=== PATIENT | female | born 1985 | race Caucasian/White ===

== ENCOUNTER 2017-12-28 08:10 | Emergency (ER) | payer OTHER ==
--- NOTE | 2017-12-28 09:38 | EDPHY ---
General - History Smoking Status: Never smoked Time Seen by Provider: 12/28/17 09:25 Narrative: CHIEF COMPLAINT: Left leg pain HISTORY OF PRESENT ILLNESS: Patient presents by private vehicle with complaints of left leg pain with concern for DVT. She reports 2 days history of left calf pain and swelling. No redness. No warmth. No trauma or injury. She is concerned as the pain is increasing father is reportedly heterozygous for factor V Leiden. She does take oral contraceptive pills but does not know that they contain estrogen estradiol. She has no chest pain or shortness of breath at any time. She has no thigh or knee pain on the left lower extremity. No previous incidence of venous thrombolic event. No recent travel, trauma or surgery. Pain is mild-to- moderate. Worse with palpation and movement. Improves when elevated. No other associated complaints or modifying factors. ESTABLISHED ORTHOPEDIST: None REVIEW OF SYSTEMS: Ten systems reviewed and are negative unless otherwise noted in the HPI PAST MEDICAL HISTORY: Uncomplicated. Orthopedic injuries PAST SURGICAL HISTORY: orthopedic laparoscopy SOCIAL HISTORY: non smoker. originally from [place]. Lives independently FAMILY HISTORY: Positive for heterozygous factor V Leiden EXAMINATION: General Appearance: Alert, no distress Cardiovascular: DP and PT pulses symmetric at +2. good signs of perfusion to both LE Neurological: A&O, light sensory symmetric in lower extremities, strength symmetric in lower extremities and great toes Skin: Warm and dry, no rash. no erythema. no cellulitis or induration Extremities: mild swelling and tenderness of left calf. no tenderness of left popliteal space or left thigh. no pitting edema or palpable cords Psychiatric: Mood and affect normal DIFFERENTIAL DIAGNOSES: Including but not limited to DVT, superficial thrombophlebitis, sprain, strain, muscle cramp MDM: 9:25 a.m. Left lower extremity pain of several days isolated to the left calf. Patient does have family history of heterozygous factor 5 Leiden. She takes oral contraceptive pills but she does not know which 1. Prior to my examination, is DVT study was ordered and is positive for deep vein thrombosis of both left calf peroneal veins. There is no at or above the knee. I will discuss with primary care and hematology oncology for management of this. 10:00 a.m. Case discussed with bus cleaner Dr. Gonzales. He recommends laboratory studies that I have ordered today. He recommends Xarelto 15 mg once daily for 45 days therapy. He will follow up on her laboratory studies and manage the surveillance of her DVT in the outpatient setting. 10:15 a.m. Case discussed with Dr. Templeton, returning the page for Dr. Amezquita. She reports that she would be happy to follow up with patient in outpatient setting but does request that she also see Dr. Gonzales. 10:30 a.m. Patient re-evaluated. She has discovered that her oral contraceptive does include estradiol, thus we discussed immediate discontinuation and need for backup form of control. She verbalized her understanding of this and will discuss alternative methods with her new PCP. We also had a lengthy discussion regarding her DVT, altering her daily activities, medication adherence, avoidance of all NSAIDs and strict ED precautions for any chest pain or shortness of breath. She is also to return if her lower extremity symptoms worsen. She verbalized understanding of this. She received her first dose of Xarelto here, and she is discharged home in stable condition. She continues to deny any chest pain or shortness of breath prior to DC home. SUPERVISION: Patient was independently examined, but I discussed the case with my secondary supervising physician Dr. Lucas ([facility]) Discussion: The patient was evaluated and managed by the Physician Front Office Specialist. I discussed the patient's presentation and course with the midlevel provider with them and agree with the evaluation. My co-signature indicates that I have reviewed this chart and I agree with the findings and plan of care as documented. I am the secondary supervising physician. (Shobha Lucas) - Objective Vital Signs: Initial Vital Signs Temperature (C) 37 C 12/28/17 08:13 Heart Rate 88 12/28/17 08:13 Respiratory Rate 16 12/28/17 08:13 Blood Pressure 152/89 H 12/28/17 08:13 O2 Sat (%) 97 12/28/17 08:13 O2 Delivery Mode Room Air Allergies/Adverse Reactions: Sulfa (Sulfonamide Antibiotics) Allergy (Verified 12/28/17 08:12) Home Medications: Medication Instructions Recorded Amoxicillin 12/28/17 Rivaroxaban [Xarelto 15mg (*)] 15 mg PO DAILY #45 tab 12/28/17 Laboratory Results: 12/28/17 10:20 Protein C Activity 138 % % (70 - 150) Antithrombin III Activ 94 % % (80 - 130) Medications Given: Discontinued Medications Rivaroxaban (Xarelto) 15 mg PO EDNOW ONE Stop: 12/28/17 10:09 Last Admin: 12/28/17 10:37 Dose: 15 mg Departure - Departure Disposition: Home, Routine, Self-Care Clinical Impression: Deep venous thrombosis of left peroneal vein Condition: Good Instructions: Rivaroxaban (By mouth), Deep Vein Thrombosis (ED), Deep Vein Thrombosis Prevention (ED) Additional Instructions: 1. Xarelto 15 mg once daily for at least 40 days. First dose was given in the emergency department. Do not take this with any ibuprofen, Aleve, aspirin or other anti-inflammatories. 2. ED precautions as discussed and provided on your documentation 3. Return to emergency department immediately for any chest pain or shortness of breath of any kind 4. Contact the on-call bus cleaner as provided. He will follow up on the laboratory studies that were ordered here. 5. I provided the on-call patient primary care physician as well for you to establish with. Referrals: Erin Templeton MD [Medical Doctor] - As per Instructions Stuart Lopes MD [Medical Doctor] - As per Instructions Prescriptions: Rivaroxaban [Xarelto 15mg (*)] 15 mg PO DAILY #45 tab
[2017-12-28] MEDS ORDERED: RIVAROXABAN 15 MG TAB PO ONE (10:08)
[2017-12-28 10:42] VITALS: BP 115/83
[2017-12-28 10:50] LABS: INR 1.05 (0.83-1.16); PROTIME(PATIENT) 13.9 SEC (12.0-15.0)
== END 2017-12-28 10:45 | disposition home or self-care (01) ==
DX: I82.492 Acute embolism and thrombosis of other specified deep vein of left lower extremity (principal); Z79.3 Long term (current) use of hormonal contraceptives; Z82.49 Family history of ischemic heart disease and other diseases of the circulatory system
CPT/HCPCS: 85210-90; 85220-90; 85230-90; 85260-90; 85300-90; 85303-90; 85306-90; 85597-90; 85670-90; 86147-90